=== PATIENT | male | born 1945 | race Two or more races ===

== ENCOUNTER 2025-04-10 11:47 | Emergency (ER) | payer MEDICARE, SELFPAY ==
[2025-04-10 12:00] VITALS: BP 170/75; PULSE 69; RESP 16; TEMP 36.4; O2SAT 97
--- NOTE | 2025-04-10 12:10 | XR_ITS ---
EXAMINATION: Lumbar spine 3 views TECHNIQUE: AP lateral coned lateral lower lumbar spine 3 views Date and time: April 10, 2025, 12:50 p.m., comparison March 30, 2022 INDICATIONS: Abdominal pain 5 months. FINDINGS: Severe osteopenia Chronic appearing osteoporotic compression L2, moderate and mild L1 Advanced degenerative disc disease L5-S1 Moderate lumbar spondylosis IMPRESSION: Advanced degenerative disc disease L5-S1 with
--- NOTE | 2025-04-10 12:11 | XR_ITS ---
Examination: Abdomen AP single view Technique: AP portable supine abdomen, single view Exam date and time: April 10, 2025, 1250 hours INDICATIONS: Abdominal pain constipation 5 months. FINDINGS: Moderate stool throughout the colon Mild small bowel ileus Prominent osteopenia No free air IMPRESSION: Moderate stool throughout the colon Mild small bowel ileus
--- NOTE | 2025-04-10 12:12 | EDNOTE_ITS ---
<Statement entered by Althea Bautista MD - 04/25/25 07:23> As co-signing physician, I was present and available for consult prn. I concur with the plan and care as documented by the midlevel provider. ED General RME/HPI General Chief complaint: General Adult/Misc Complain Stated complaint: PAIN FROM WAIST DOWN Time Seen by Provider: 04/10/25 11:55 Arrival date/time: 04/10/25 11:47 80-year-old male patient with no past medical history, came in for evaluation regarding multiple complaints. Patient told me that has been constipated for a while, it comes and goes, associated with abdominal discomfort. Patient also complained of low back pain, for at least 1 year now, pain radiates to the bilateral lower extremity. Patient denies any fever denies any vomiting denies any dysuria denies any weight loss denies any trauma or fall. No medication was taken prior to the ER visit. Patient is ambulatory. Related Data Previous Rx's ?Medication ?Instructions ?Recorded diclofenac sodium 1 % topical gel 2 g topical QID PRN discomfort 03/30/22 (Arthritis Pain (diclofenac)) #100 grams ibuprofen 600 mg tablet 600 mg PO TID PRN pain #30 t abs 04/10/25 lactulose 10 gram/15 mL oral 20 g (30 mL) PO BID PRN 1 06/11/24 solution constipation #473 mL Allergies Allergy/AdvReac Type Severity Reaction Status Date / Time No Known Allergies Allergy Verified 04/10/25 11:54 Review of Systems Review of Systems Narrative Review of Systems: Review of system reviewed and within normal limits except mentioned in HPI ED Exam Narrative Physical exam: VITAL SIGNS: Reviewed. GENERAL APPEARANCE: Alert and interactive, follows commands, no acute distress, HEAD AND FACE: Non-traumatic. ENT: PERRL, pink conjunctivitis, eyelid no trauma, Mucous membrane moist. NECK: Supple, nontender, no nuchal rigidity. CHEST: No tenderness, no crepitus, no paradoxical movement, no retractions. LUNGS: Clear, well ventilated, symmetric, no rales, no wheezing, no ronchi, no stridor, good breath sounds bilaterally. HEART: Regular rate, regular rhythm, no murmur, no gallops. ABDOMEN: Soft, positive bowel sounds, nondistended, no guarding, nontender, no rebound, no masses, RECTAL: Deferred. GENITAL: Deferred. NEUROLOGICAL: Gross motor function intact sensory function intact, Appropriate for age. MUSCULOSKELETAL: low back tenderness, full range of motion. EXTREMITIES: Nontender, full range of motion. SKIN: Color pink, dry, no rash, no lacerations, no abrasions, no contusions. LYMPHATICS: Deferred. Course Quality Measures none Orders Category Date Time Status KUB [XR abdomen 1V] Stat Exams 04/10/25 12:11 Completed XR lumbar spine 2-3V Stat Exams 04/10/25 12:10 Completed CBC Stat Lab 04/10/25 12:27 Completed Comprehensive Metabolic Panel Stat Lab 04/10/25 12:27 Completed Lipase Stat Lab 04/10/25 12:27 Completed Prothrombin Time with INR Stat Lab 04/10/25 12:27 Completed UA, C/S IF [Urinalysis, C/S if Indicated] Stat Lab 04/10/25 12:55 Completed Magnesium Citrate Liqd [Citrate of Magnesia Liqd] Med 04/10/25 16:00 Discontinued 300 ml PO X1 ONE Vital Signs Vital signs: Vital Signs Temperature 97.6 F 04/10/25 12:00 Pulse Rate 69 04/10/25 12:00 Respiratory Rate 16 04/10/25 12:00 Blood Pressure 170/75 H 04/10/25 12:00 Pulse Oximetry (%) 97 04/10/25 12:00 Oxygen Delivery Method Room Air 04/10/25 12:00 Discharge Plan Plan Patient Disposition: HOME (Self Care) Discharge Disposition comment: Stable Prescriptions/Referrals Prescriptions/Med Rec: New ibuprofen 600 mg tablet 600 mg PO TID PRN (Reason: pain) Qty: 30 0RF lactulose 10 gram/15 mL solution 20 g PO BID PRN (Reason: constipation) Qty: 473 0RF No Action diclofenac sodium [Arthritis Pain (diclofenac)] 1 % gel 2 g topical QID PRN (Reason: discomfort) Qty: 100 0RF Rx Instructions: apply to back Referrals: No Primary/Family,Physician [Primary Care Provider] - In 1 week Problem List Clinical Impression: Constipation, Low back pain Patient/Caregiver Discharge Instructions Discharge Activity: activity as tolerated Education Materials: Back Safety: Bending, ED Constipation (Adult) Additional Instructions: Thank you for the opportunity for serving you today. You are stable for discharged . You are advised to: Follow-up with your PCP in 1 to 2 days Return to ED for worsening of symptoms Increase oral fluids Take medication as prescribed Print Language: Georgian Stand Alone Forms: Christelle Award Info., Patient Portal Info Letter SHARON Supervising Physician SHARON Supervising Physician: MD Usman MDM Narrative MDM hospital course (for use when minimal MDM required): 80-year-old male patient with no past medical history, came in for evaluation regarding multiple complaints. Patient told me that has been constipated for a while, it comes and goes, associated with abdominal discomfort. Patient also complained of low back pain, for at least 1 year now, pain radiates to the bilateral lower extremity. Patient denies any fever denies any vomiting denies any dysuria denies any weight loss denies any trauma or fall. No medication was taken prior to the ER visit. Patient is ambulatory. X-ray of the lumbar spine showed degenerative disc disease. X-ray of the abdomen showed constipation laboratory workup all came back unremarkable results discussed with the patient and family. Patient was given mag citrate in the ED. Stable discharge home prior images not needed at this time there is no sign of cauda equina syndrome Medication Administration(s) Medication Administration History Discontinued Medications Magnesium Citrate (Magnesium Citrate 300 Ml Btl) 300 ml PO X1 ONE Stop: 04/10/25 16:01
[2025-04-10 12:47] LABS: Basophils # (Auto) 0.1 Thou/mm3 (0.0-0.2); Basophils % (Auto) 1 % (0-2.5); Eosinophils # (Auto) 0.1 Thou/mm3 (0.0-0.5); Eosinophils % (Auto) 2 % (0-10); Hematocrit 36.8 % (41.0-53.0); Hemoglobin 13.0 g/dL (13.5-16.0); Immature Granulocytes Auto 0.01 Thou/mm3 (0.00-0.00); Lymphocytes # (Auto) 1.3 Thou/mm3 (1.0-4.8); Lymphocytes % (Auto) 31 % (10-50); Mean Corpuscular HGB Conc 35.3 g/dl (31.0-37.0); Mean Corpuscular Hemoglobin 32.7 pg (25.0-35.0); Mean Corpuscular Volume 93 fL (80-100); Monocytes # (Auto) 0.7 Thou/mm3 (0.0-0.8); Monocytes % (Auto) 16 % (0-12); Neutrophils # (Auto) 2.2 Thou/mm3 (1.8-7.7); Neutrophils % (Auto) 50 % (37-80); Nucleated Red Blood Cell # 0.00 Thou/mm3 (0.00-0.00); Nucleated Red Blood Cell % 0 /100 WBC (0); Platelet Count 184 Thou/mm3 (140-440); RDW Standard Deviation 42.1 fL (35.1-43.9); Red Blood Count 3.97 Miln/mm3 (4.50-5.90); White Blood Count 4.3 Thou/mm3 (3.8-10.6)
[2025-04-10 13:04] LABS: Collection Type, Urine Clean Catch
[2025-04-10 13:07] LABS: Alanine Aminotransferase 15 U/L (10-49); Albumin, Serum 4.3 gm/dL (3.4-4.8); Albumin/Globulin Ratio 1.3 (1.2-2.2); Alkaline Phosphatase 108 U/L (46-116); Anion Gap 11 (7-16); Aspartate Amino Transferase 21 U/L (0-34); BUN/Creatinine Ratio 9 Ratio (12-20); Bilirubin,Total 0.6 mg/dL (0.3-1.2); Blood Urea Nitrogen 8 mg/dL (9-23); Calcium 8.7 mg/dL (8.3-10.6); Calcium (Corrected) 8.7 mg/dL (8.5-10.1); Carbon Dioxide 27.3 mMol/L (20.0-31.0); Chloride 100 mMol/L (98-107); Creatinine (Component) 0.9 mg/dL (0.6-1.3); Globulin 3.4 gm/dL (2.3-3.5); Glucose 149 mg/dL (74-106); Lipase 37 U/L (12-53); Osmolality,Calculated 276 (275-295); Potassium 3.8 mMol/L (3.4-5.1); Sodium 138 mMol/L (136-145); Total Protein 7.7 gm/dL (5.7-8.2); eGFR > 60 See Note
[2025-04-10 13:33] LABS: Bacteria,Urine Rare; Bilirubin,Urine Negative (Negative); Blood,Urine Negative (Negative); Clarity,Urine Clear (Clear/Hazy); Color,Urine Colorless (Lt Yel-Yel); Culture Indicated,Urine Not Indicated; Glucose, Urine Negative (Negative); Ketones,Urine Negative (Negative); Leukocyte Esterase,Urine Negative (Negative); Nitrite,Urine Negative (Negative); PH,Urine 6.5 (5.0-7.0); Protein,Urine Negative (Neg - Trace); RBC,Urine < 1 /hpf (0-3); Specific Gravity,Urine 1.007 (1.001-1.035); Squamous Epithelial Cell,Urine < 1 /hpf (0-5); Urobilinogen,Urine Negative mg/dL (0.0-1.0); WBC,Urine 1 /hpf (0-5)
[2025-04-10 14:33] LABS: INR 1.0 (0.9-1.3); Prothrombin Time 10.5 Seconds (9.0-12.2)
[2025-04-10] MEDS: MAGNESIUM CITRATE 300 ML BTL PO (16:37)
== END 2025-04-10 17:01 | disposition home or self-care (01) ==
PROVIDERS: Nurse Practitioner Family; Emergency Provider Emergency Medicine
DX: M54.50 Low back pain, unspecified (principal); K59.00 Constipation, unspecified
CPT/HCPCS: 36415; 72100; 74018; 80053; 81001; 83690; 85025; 85610; 99283; A9270